=== PATIENT | male | born 1960 | race American Indian/Alaskan Native ===

== ENCOUNTER 2018-09-05 17:04 | Emergency (ER) | payer OTHER ==
[2018-09-05 18:22] VITALS: BP 132/72
[2018-09-05] MEDS ORDERED: IBUPROFEN PO ONE (18:27)
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
== END 2018-09-05 20:03 | disposition home or self-care (01) ==
LOC: ED 17:04
DX: S13.4XXA Sprain of ligaments of cervical spine, initial encounter (principal); V89.2XXA Person injured in unspecified motor-vehicle accident, traffic, initial encounter; Y93.89 Activity, other specified; Y92.488 Other paved roadways as the place of occurrence of the external cause; Y99.8 Other external cause status
CPT/HCPCS: 72040; 99283